=== PATIENT | female | born 1940 | race Caucasian/White ===

== ENCOUNTER 2022-01-24 10:33 | Emergency (ER) | payer OTHER ==
[~2022-01-24] VITALS: Ht 154.9 cm; Wt 65.8 kg
== END 2022-01-24 15:39 | disposition home or self-care (01) ==
LOC: ER 10:33
DX: S00.03XA Contusion of scalp, initial encounter (principal); W01.0XXA Fall on same level from slipping, tripping and stumbling without subsequent striking against object, initial encounter; Y92.019 Unspecified place in single-family (private) house as the place of occurrence of the external cause; S20.229A Contusion of unspecified back wall of thorax, initial encounter